=== PATIENT | female | born 1990 | race Caucasian/White ===

== ENCOUNTER 2021-02-24 11:16 | Emergency (ER) | payer OTHER, SELFPAY ==
[2021-02-24] MEDS ORDERED: HYDROcodone/Acetaminophen 5/325 mg Tablet ONE (13:52)
== END 2021-02-24 14:30 | disposition home or self-care (01) ==
LOC: CSHERS 11:16
DX: M25.551 Pain in right hip (principal)

== ENCOUNTER 2021-03-03 09:55 | Outpatient (CLI) | payer OTHER | END 2021-03-03 09:56 | disposition home or self-care (01) | LOC: CSHRAD 09:55 | PROVIDERS: ATTEND Psychiatry & Neurology Neurology | DX: S39.93XA Unspecified injury of pelvis, initial encounter (principal) | CPT/HCPCS: 72170 ==

== ENCOUNTER 2023-01-13 19:26 | Emergency (ER) | payer OTHER ==
[2023-01-13] MEDS ORDERED: Ketorolac Tromethamine 30 MG/ML VIAL ONE (20:16)
== END 2023-01-13 20:46 | disposition home or self-care (01) ==
LOC: CSHERS 19:26
DX: K02.9 Dental caries, unspecified (principal); K03.81 Cracked tooth; F17.210 Nicotine dependence, cigarettes, uncomplicated
CPT/HCPCS: 96372; 99282; J1885

== ENCOUNTER 2024-04-23 13:07 | Emergency (ER) | payer OTHER ==
[2024-04-23] MEDS ORDERED: Ketorolac Tromethamine 30 MG (1 mL) VIAL ONE (15:01)
[2024-04-23] MEDS ORDERED: Dexamethasone 10 MG/ML VIAL ONE (15:01)
[2024-04-23] MEDS ORDERED: Acetaminophen 325 MG TAB ONE (15:01)
== END 2024-04-23 16:10 | disposition home or self-care (01) ==
LOC: CSHERS 13:07
DX: J06.9 Acute upper respiratory infection, unspecified (principal); F17.210 Nicotine dependence, cigarettes, uncomplicated
CPT/HCPCS: 71046; 87081; 87428; 87430; 96372; J1100; J1885